=== PATIENT | male | born 1990 | race Asian ===

== ENCOUNTER 2018-02-12 22:53 | Emergency (ER) | payer SELFPAY ==
[~2018-02-12] VITALS: Ht 167.6 cm; Wt 54.4 kg
[2018-02-12 23:08] VITALS: BP 100/54
--- NOTE | 2018-02-12 23:55 | Emergency Room Report ---
History of Present Illness General Chief Complaint: Earache Source: Patient Present Illness HPI 27-year-old male presenting with left ear popping sensation as well as dizziness. States that it occurred an hour or 2 prior to arrival to the emergency room. Denies any actual pain. Complaining of some tinnitus. No headache no vomiting no neck pain. Allergies: Coded Allergies: No Known Allergies (Unverified , 02/12/18) Patient History Past Medical History: see triage record Past Surgical History: none Pertinent Family History: none Reviewed Nursing Documentation: PMH: Agreed; PSxH: Agreed Nursing Documentation-PMH Hx Gastrointestinal Problems: Yes - Stomach Ulcer Review of Systems All Other Systems: negative except mentioned in HPI Physical Exam Vital Signs Date Time Temp Pulse Resp B/P (MAP) Pulse Ox O2 Delivery O2 Flow Rate FiO2 02/12/18 23:01 99.0 80 15 108/62 98 Room Air 99.0 Sp02 EP Interpretation: reviewed, normal General Appearance: alert, GCS 15, non-toxic, mild distress Head: normocephalic, atraumatic Eyes: bilateral eye PERRL, bilateral eye EOMI, bilateral eye other - bl horizontal nystagmus ENT: normal pharynx, TMs + canals normal, moist mucus membranes Neck: normal inspection, full range of motion, supple Respiratory: normal inspection, lungs clear, normal breath sounds, no respiratory distress, no retraction, no wheezing, speaking full sentences, chest symmetrical Cardiovascular #1: normal inspection, regular rate, rhythm, normal capillary refill Cardiovascular #2: 2+ radial (R), 2+ radial (L) Gastrointestinal: normal inspection, non tender, soft, non-distended, no guarding Genitourinary: no CVA tenderness Musculoskeletal: normal inspection, back normal, normal range of motion, non- tender Neurologic: normal inspection, alert, oriented x3, responsive, 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 Feels much better Disposition: Patient is to be discharged to home with girlfriend Patient is instructed to follow up with their primary care doctor within 5 days. Please note that this Emergency Department Report was dictated using [employer] exterminator technology software, occasionally this can lead to erroneous entry secondary to interpretation by the dictation equipment EKG Diagnostic Results EP Interpretation: Yes Rate: normal Rhythm: NSR ST Segments: No acute changes ASA given to patient: No Last Vital Signs Date Time Temp Pulse Resp B/P (MAP) Pulse Ox O2 Delivery O2 Flow Rate FiO2 02/12/18 23:08 98.9 67 16 100/54 100 Room Air 98.9 Disposition: HOME, SELF-CARE Condition: Improved Scripts Meclizine Hcl* (MECLIZINE*) 25 Mg Tablet 25 MG ORAL THREE TIMES A DAY, #21 TAB Prov: Jairo Nixon M.D. 02/13/18 Jairo Nixon M.D. Feb 12, 2018 23:55
[2018-02-12 23:59] LABS: APPEARANCE,URINE CLEAR; BILIRUBIN, URINE NEGATIVE (NEGATIVE); COLOR,URINE PALE YELLOW; GLUCOSE, URINE (UA) NEGATIVE (NEGATIVE); KETONES,URINE NEGATIVE (NEGATIVE); LEUKOCYTE ESTERASE ,URINE NEGATIVE (NEGATIVE); NITRITE,URINE NEGATIVE (NEGATIVE); PH,URINE 7 (4.5-8.0); PROTEIN,URINE 1+ (NEGATIVE); UROBILINOGEN,URINE NORMAL MG/DL (0.0-1.0)
[2018-02-13] MEDS ORDERED: Meclizine 25mg tab ORAL ONE
[2018-02-13] MEDS ORDERED: MECLIZINE HCL25 MG ORAL (00:12)
[2018-02-13 00:23] VITALS: BP 108/64
[2018-02-13 00:43] VITALS: BP 108/62
[2018-02-13 00:47] VITALS: BP 108/62
--- NOTE | 2018-02-14 21:24 | Cardiology Report ---
APPROVED REPORT EKG Measurement Heart [id number] Normal sinus rhythm Normal ECG
== END 2018-02-13 00:49 | disposition home or self-care (01) ==
LOC: EMR 23:35
DX: H81.392 Other peripheral vertigo, left ear (principal); Z87.11 Personal history of peptic ulcer disease
CPT/HCPCS: 81003; 93005; 99283